=== PATIENT | female | born 1980 | race Caucasian/White ===

== ENCOUNTER 2020-07-04 11:29 | Emergency (ER) | payer OTHER, SELFPAY ==
[2020-07-04 11:37] VITALS: BP 143/98; PULSE 96; RESP 20; TEMP 36.4; O2SAT 98
--- NOTE | 2020-07-04 11:40 | ED.GENADULT ---
HPI - General Adult General Chief complaint: Upper Respiratory Infection Stated complaint: SORE THROAT Time Seen by Provider: 07/04/20 11:41 Source: patient and RN notes reviewed Mode of arrival: ambulatory Limitations: no limitations History of Present Illness HPI narrative: 39-year-old female presents with complaints of sore throat for 1 day. Latesha says she awaken this morning with sore throat and ball hangling from the back of her throat. No treatment. No high fevers, drooling, neck or throat swelling. Pain is bilateral. Hurts to swallow. Exacerbation factors consist of eating and drinking. No rhinorrhea or nasal congestion. No voice change. No nausea, vomiting, or abdominal pain. Tolerating liquids well. Denies chills, dyspnea, difficulty swallowing, jaw pain, dental pain, facial pain, foreign body sensation, and rash. LMP unknown due to IUD in place per Latesha. Remains active. The patient reports she have not been diagnosed with COVID-19. The patient reports she is not waiting for the results of a COVID-19 lab test. The patient reports she do not have fever, chills, weakness, or fatigue. The patient reports she do not have a new or worsening cough or shortness of breath. Denies chest pain. The patient reports she do not have any loss of taste, nausea, or diarrhea. Denies recent traveling. Denies concerns for COVID-19 or exposures been home with limited outdoor exposure except for essential household needs, work, and return home. At this time, patient is not suspected of having COVID-19. Some parts of this dictation were generated by voice recognition software and may contain typographical and/or grammatical inaccuracies. Related Data Home Medications Medication Instructions Recorded Confirmed albuterol sulfate 1 inh INHALATION QID PRN 07/04/20 07/04/20 aspirin 81 mg PO DAILY 07/04/20 07/04/20 atorvastatin 40 mg PO DAILY 07/04/20 07/04/20 clonazepam 0.5 mg PO DAILY PRN 07/04/20 07/04/20 fluoxetine 20 mg PO DAILY 07/04/20 07/04/20 metoprolol tartrate 25 mg PO BID 07/04/20 07/04/20 omeprazole 20 mg PO DAILY 07/04/20 07/04/20 triamterene-hydrochlorothiazid 1 tablet PO DAILY 07/04/20 07/04/20 zolpidem 10 mg PO HS PRN 07/04/20 07/04/20 Allergies Allergy/AdvReac Type Severity Reaction Status Date / Time No Known Allergies Allergy Verified 07/04/20 11:51 Review of Systems Review of Systems: Narrative: CONSTITUTIONAL: Denies fever, chills, sweats. EYES: Denies visual changes, redness, discharge. ENT: Denies rhinorrhea, otalgia, congestion. Complains of sore throat. CARDIOVASCULAR: Denies chest pain, palpitations, edema. RESPIRATORY: Denies dyspnea, wheezing, cough. GASTROINTESTINAL: Denies abdominal pain, nausea, vomiting, diarrhea. GENITOURINARY: Denies dysuria, hematuria, abnormal discharge. SKIN: Denies rash or itching. MUSCULOSKELETAL: Denies acute back pain, joint pain, or myalgia. NEUROLOGIC: Denies numbness or focal weakness. PSYCHIATRIC: Denies anxiety or depression. All systems reviewed & are unremarkable except as noted in HPI and below. [facility] Past Medical History Medical History (Updated 07/04/20 @ 12:21 by ARMINDA Espino) Anxiety Asthma delivery delivered Depression Ganglion cyst History of gastroesophageal reflux (GERD) Hypercholesteremia Hypertension Morbid obesity Latesha says she is preparing to get gastric bypass Myocardial infarct, old Surgical History Surgical History (Updated 07/04/20 @ 12:21 by ARMINDA Espino) H/O section X2 History of coronary artery stent placement History of surgery on left wrist Cyst removed from left wrist History of tonsillectomy S/P LEEP (loop electrosurgical excision procedure) Family History Family History (Updated 07/04/20 @ 12:22 by ARMINDA Espino) Father Unknown family medical history Mother Asthma Hypertension Heart disease Diabetes mellitus Social Histo
== END 2020-07-04 12:24 | disposition home or self-care (01) ==
PROVIDERS: Emergency Provider Nurse Practitioner Family; PCP Family Medicine
DX: J02.9 Acute pharyngitis, unspecified (principal); Z20.828 Contact with and (suspected) exposure to other viral communicable diseases; F17.210 Nicotine dependence, cigarettes, uncomplicated; Z95.5 Presence of coronary angioplasty implant and graft; I25.10 Atherosclerotic heart disease of native coronary artery without angina pectoris; J45.909 Unspecified asthma, uncomplicated; K21.9 Gastro-esophageal reflux disease without esophagitis; E78.00 Pure hypercholesterolemia, unspecified; I10 Essential (primary) hypertension; I25.2 Old myocardial infarction; E66.01 Morbid (severe) obesity due to excess calories; Z68.42 Body mass index [BMI] 45.0-49.9, adult; F41.9 Anxiety disorder, unspecified; F32.9 Major depressive disorder, single episode, unspecified
CPT/HCPCS: 87081; 87804; 87880; 99213; G0463

== ENCOUNTER 2020-07-05 06:59 | Outpatient (NON) | payer OTHER, SELFPAY ==
[2020-07-05 18:17] LABS: SARS-CoV-2 RNA PCR Negative
== END 2020-07-05 07:00 ==
PROVIDERS: PCP Family Medicine; Visit Provider Nurse Practitioner Family
DX: Z20.828 Contact with and (suspected) exposure to other viral communicable diseases (principal); J02.9 Acute pharyngitis, unspecified
CPT/HCPCS: 87635; C9803; U0003

== ENCOUNTER 2020-07-07 16:33 | Outpatient (CLI) | payer OTHER, SELFPAY ==
--- NOTE | ~2020-07-07 | MM_ITS ---
EXAMINATION: MM screening zaida BI w ruby HISTORY: Screening TECHNIQUE: Craniocaudal and mediolateral oblique 3-D tomosynthesis images were obtained and synthetic 2-D images were generated. CAD analysis was submitted and interpreted. COMPARISON: No prior mammogram is available for comparison at this institution. BREAST PARENCHYMAL COMPOSITION: There are scattered areas of fibroglandular density. FINDINGS: There is no evidence of suspicious mass, calcification, or architectural distortion to sugg est malignancy in either breast. There has been no suspicious interval change. IMPRESSION: 1. No mammographic evidence of malignancy. 2. Recommend routine screening mammography in one year. BI-RADS Category 1: Negative Reviewed, dictated and finalized at location A.
== END 2020-07-07 16:34 | disposition home or self-care (01) ==
LOC: ANHIMG 16:35
PROVIDERS: PCP Family Medicine; Visit Provider Family Medicine
DX: Z12.31 Encounter for screening mammogram for malignant neoplasm of breast (principal)
CPT/HCPCS: 77063; 77067

== ENCOUNTER 2020-12-14 17:52 | Emergency (ER) | payer OTHER, SELFPAY ==
[2020-12-14 17:59] VITALS: BP 153/90; PULSE 91; RESP 20; TEMP 36.7; O2SAT 100
--- NOTE | 2020-12-14 18:03 | ED.URI ---
HPI - URI/Sore Throat General Chief Complaint: Upper Respiratory Infection Stated Complaint: DRY THROAT/WHITE SPOTS Time Seen by Provider: 12/14/20 18:04 Source: patient and RN notes reviewed Mode of arrival: ambulatory Limitations: no limitations History of Present Illness HPI Narrative: 40 year old female who presents to [facility] care with complaints of sore throat for 1 day duration. She has noted white bumps to the back of her throat. She states concern since she is getting ready to leave country on vacation. She denies any ear pain, sinus congestion or drainage, or any acute cough or shortness of breath. Patient states that she has had had her tonsils removed but has had strep since their removal. Patient has history of tobacco abuse, and asthma.She denies any known fevers, chills or sweats. MD elicited complaint: sore throat Pertinent past history: asthma and other (tobacco abuse) Onset (ago): day(s) (1) Consistency: constant Severity: moderate Pain scale (0-10): 4 Able to tolerate fluids by mouth: Yes Exacerbating factors: swallowing Relieving factors: nothing Associated symptoms: denies other symptoms Treatments prior to arrival: none Related Data Home Medications Medication Instructions Recorded Confirmed albuterol sulfate 1 inh INHALATION QID PRN 07/04/20 07/04/20 aspirin 81 mg PO DAILY 07/04/20 07/04/20 atorvastatin 40 mg PO DAILY 07/04/20 07/04/20 clonazepam 0.5 mg PO DAILY PRN 07/04/20 07/04/20 fluoxetine 20 mg PO DAILY 07/04/20 07/04/20 metoprolol tartrate 25 mg PO BID 07/04/20 07/04/20 omeprazole 20 mg PO DAILY 07/04/20 07/04/20 triamterene-hydrochlorothiazid 1 tablet PO DAILY 07/04/20 07/04/20 zolpidem 10 mg PO HS PRN 07/04/20 07/04/20 Allergies Allergy/AdvReac Type Severity Reaction Status Date / Time No Known Allergies Allergy Verified 07/04/20 11:51 Review of Systems Review of Systems: Narrative: CONSTITUTIONAL: Denies fever, chills, or sweats. EYES: Denies visual changes, redness, or discharge. ENT: Denies rhinorrhea, congestion, positive for sore throat, no otalgia. CARDIOVASCULAR: Denies chest pain, palpitations, or edema. RESPIRATORY: Denies cough or dyspnea. GASTROINTESTINAL: Denies abdominal pain, nausea, vomiting, or diarrhea. GENITOURINARY: Denies dysuria or hematuria. SKIN: Denies rash or itching. MUSCULOSKELETAL: Denies back pain, joint pain, or myalgia. NEUROLOGIC: Denies headache, numbness, or weakness. PSYCHIATRIC:Positive history of anxiety and depression. All systems reviewed & are unremarkable except as noted in HPI and below PMFSH Past Medical History Medical History Anxiety Asthma delivery delivered Depression Ganglion cyst History of gastroesophageal reflux (GERD) Hypercholesteremia Hypertension Morbid obesity Latesha says she is preparing to get gastric bypass Myocardial infarct, old Surgical History Surgical History H/O section X2 History of coronary artery stent placement History of surgery on left wrist Cyst removed from left wrist History of tonsillectomy S/P LEEP (loop electrosurgical excision procedure) Family History Family History Father Unknown family medical history Mother Asthma Hypertension Heart disease Diabetes mellitus Social History Social History Smoking packs per day: 0.45 Smoking cigarettes per day: 9.0 Years smoked: 25 Smoking pack-years: 11.25 Smoking status: Current every day smoker Tobacco type: cigarettes Alcohol intake: current Substance use: current Substance use type: marijuana Gender identity (if verbalized by the patient): Female Comments At time of signature, agree with nursing past medical, surgical, social and family history. There is no relevant fami
== END 2020-12-14 18:20 | disposition home or self-care (01) ==
PROVIDERS: Emergency Provider Registered Nurse; PCP Family Medicine
DX: J02.9 Acute pharyngitis, unspecified (principal); F17.210 Nicotine dependence, cigarettes, uncomplicated; F41.9 Anxiety disorder, unspecified; J45.909 Unspecified asthma, uncomplicated; F32.9 Major depressive disorder, single episode, unspecified; K21.9 Gastro-esophageal reflux disease without esophagitis; E78.00 Pure hypercholesterolemia, unspecified; I10 Essential (primary) hypertension; E66.01 Morbid (severe) obesity due to excess calories; Z68.43 Body mass index [BMI] 50.0-59.9, adult; I34.1 Nonrheumatic mitral (valve) prolapse; I25.10 Atherosclerotic heart disease of native coronary artery without angina pectoris; Z95.5 Presence of coronary angioplasty implant and graft
CPT/HCPCS: 87081; 87880; 99213; G0463

== ENCOUNTER 2021-04-02 12:16 | Emergency (ER) | payer OTHER, SELFPAY ==
--- NOTE | 2021-04-02 12:18 | ED.EYEPROB ---
HPI - Eye Problem General Chief complaint: Eye Problems Stated complaint: L EYELID SWELLING Time Seen by Provider: 04/02/21 12:19 Source: patient and RN notes reviewed History of Present Illness HPI Narrative: Patient is a 40-year-old female who presents the urgent care with complaints of left eyelid swelling. Patient currently denies of any pain in the eye. Denies any known trauma or injury. Denies any fevers, chills, nausea, vomiting. Patient states that it started yesterday after feeling like something was scratching her in the corner of her eye for couple days . Patient has not taken anything [id number] for her symptoms. No other acute complaints. No acute distress noted. Patient aware of the plan of care. Some parts of this dictation were generated by voice recognition software and may contain typographical and/or grammatical inaccuracies. Related Data Home Medications Medication Instructions Recorded Confirmed albuterol sulfate 1 inh INHALATION QID PRN 07/04/20 07/04/20 aspirin 81 mg PO DAILY 07/04/20 07/04/20 atorvastatin 40 mg PO DAILY 07/04/20 07/04/20 clonazepam 0.5 mg PO DAILY PRN 07/04/20 07/04/20 fluoxetine 20 mg PO DAILY 07/04/20 07/04/20 metoprolol tartrate 25 mg PO BID 07/04/20 07/04/20 omeprazole 20 mg PO DAILY 07/04/20 07/04/20 triamterene-hydrochlorothiazid 1 tablet PO DAILY 07/04/20 07/04/20 zolpidem 10 mg PO HS PRN 07/04/20 07/04/20 Allergies Allergy/AdvReac Type Severity Reaction Status Date / Time No Known Allergies Allergy Verified 07/04/20 11:51 Review of Systems Review of Systems: Narrative: CONSTITUTIONAL: Denies fever, chills, or sweats. EYES: Reports of left upper eyelid swelling, redness and drainage without vision change ENT: Denies rhinorrhea, congestion, sore throat, or otalgia. CARDIOVASCULAR: Denies chest pain, palpitations, or edema. RESPIRATORY: Denies cough or dyspnea. GASTROINTESTINAL: Denies abdominal pain, nausea, vomiting, or diarrhea. GENITOURINARY: Denies dysuria or hematuria. SKIN: Denies rash or itching. MUSCULOSKELETAL: Denies back pain, joint pain, or myalgia. NEUROLOGIC: Denies headache, numbness, or weakness. All other systems reviewed are negative, except as documented in HPI. [facility] Past Medical History Medical History Anxiety Asthma delivery delivered Depression Ganglion cyst History of gastroesophageal reflux (GERD) Hypercholesteremia Hypertension Morbid obesity Latesha says she is preparing to get gastric bypass Myocardial infarct, old Surgical History Surgical History H/O section X2 History of coronary artery stent placement History of surgery on left wrist Cyst removed from left wrist History of tonsillectomy S/P LEEP (loop electrosurgical excision procedure) Family History Family History Father Unknown family medical history Mother Asthma Hypertension Heart disease Diabetes mellitus Social History Social History Smoking packs per day: 0.45 Smoking cigarettes per day: 9.0 Years smoked: 25 Smoking pack-years: 11.25 Smoking status: Current every day smoker Tobacco type: cigarettes Alcohol intake: current Substance use: current Substance use type: marijuana Gender identity (if verbalized by the patient): Female Comments At the time of my signature, I reviewed and agree with the nursing past medical, surgical, social, and family history. There is no relevant family history pertinent to the patient complaint. Exam Narrative: Exam Narrative: GENERAL: This is a well-nourished, well-developed patient, in no apparent distress. HEAD: normocephalic, atraumatic. EYES: PERRL. Sclera clear/white. Vision is grossly intact. Left upper eyelid periorbital cellulitis
[2021-04-02 12:23] VITALS: BP 153/112; PULSE 84; RESP 16; TEMP 36.4; O2SAT 99
== END 2021-04-02 12:36 | disposition home or self-care (01) ==
PROVIDERS: Emergency Provider Nurse Practitioner Family; PCP Family Medicine
DX: L03.213 Periorbital cellulitis (principal); F17.210 Nicotine dependence, cigarettes, uncomplicated; J45.909 Unspecified asthma, uncomplicated; K21.9 Gastro-esophageal reflux disease without esophagitis; E78.00 Pure hypercholesterolemia, unspecified; I10 Essential (primary) hypertension; E66.01 Morbid (severe) obesity due to excess calories; Z68.43 Body mass index [BMI] 50.0-59.9, adult; I25.2 Old myocardial infarction; Z95.5 Presence of coronary angioplasty implant and graft
CPT/HCPCS: 99213; G0463

== ENCOUNTER 2021-08-30 11:05 | Outpatient (RCR) | payer OTHER, SELFPAY ==
[2021-08-30 11:15] VITALS: BMI 50.5
== END 2021-10-04 09:27 | disposition home or self-care (01) ==
LOC: ANHDMC 11:05
PROVIDERS: PCP Family Medicine; Visit Provider Family Medicine
DX: E66.01 Morbid (severe) obesity due to excess calories (principal)
CPT/HCPCS: 99199

== ENCOUNTER 2022-02-15 18:29 | Observation (INO) | payer OTHER, SELFPAY ==
[2022-02-15] VITALS (11 sets, daily range): BP systolic 129–160; BP diastolic 77–115; PULSE 78–99; RESP 15–24; TEMP 36.4–36.6; O2SAT 92–100; BMI 53.1
--- NOTE | ~2022-02-15 | NM_ITS ---
EXAMINATION: NM lois stress w perfusion DATE: 02/16/2022 12:28 INDICATION: Abnormal electrocardiogram. Syncope. TECHNIQUE: Rest images were obtained following intravenous administration of 9.2 mCi Tc99m tetrofosmi n (Myoview). The patient was infused intravenously with Lexiscan (regadenoson). Then, 30.7 mCi Tc99m tetrofosmin (Myoview) was administered intravenously, and stress images were obtained. Data was recon structed into short axis and horizontal and vertical long axis SPECT images. Gated SPECT images were also obtained. COMPARISON: None. FINDINGS: There is no definite reversible or fixed perfusion abnormality to suggest ischemia or infar ction. There is no segmental wall motion abnormality. Left ventricular ejection fraction measures 6 9%. IMPRESSION: 1. No definite ischemia or infarct. 2. Normal left ventricular ejection fraction measuring 69%. Reviewed, dictated and finalized at location A.
--- NOTE | ~2022-02-15 | CT_ITS ---
EXAMINATION: CT brain wo con DATE: 02/15/2022 20:19 INDICATION: Paresthesia . TECHNIQUE: Computed tomography (CT) of the head was performed without intravenous contrast. The mA wa s adjusted according to patient size. Iterative reconstruction technique was employed. The dose-lengt h product was 605.33 mGy-cm. COMPARISON: 05/31/2019. FINDINGS: No acute intracranial hemorrhage or extra-axial fluid collection. No hydrocephalus, mass, or herniation. No acute ischemic infarct. Unremarkable dural venous sinus attenuation. No acute osseous abnormality. The aerated spaces are clear. IMPRESSION: No acute intracranial process. Reviewed, dictated and finalized at location K.
--- NOTE | ~2022-02-15 | XR_ITS ---
EXAMINATION: XR chest 2V Exam Date/Time: 02/15/2022 21:05 CDT HISTORY: TINGLING FINGER TIPS,LT ARM NUMB,X 1.5 WKS,HX HTN,ASTHMA Comparison: None available. RESULT: Lines, tubes, and devices: None. Lungs and pleura: Clear. Cardiomediastinal silhouette: Stable cardiomediastinal silhouette. Other: No acute osseous or upper abdominal finding. IMPRESSION: No acute cardiopulmonary process. Reviewed, dictated and finalized at location K.
--- NOTE | ~2022-02-15 | US_ITS ---
EXAMINATION: US carotid duplex BI DATE: 02/16/2022 11:00 INDICATION: Syncope. Paresthesias. Cerebral atherosclerosis. TECHNIQUE: Grayscale, color Doppler, and pulsed Doppler images of the cervical carotid arteries were obtained. The degree of vessel stenosis is placed in one of the following categories: normal, <50%, 5 0-69%, >=70% but less than near-occlusion, near-occlusion, or total occlusion. Note that percent sten osis relative to normal distal artery lumen diameter is indirectly measured from velocity measurement s as described by Jovany, et al. Radiology 2003; 229:340-346. COMPARISON: None. FINDINGS: RIGHT: The right common carotid artery (CCA) peak systolic velocity (PSV) is 71 cm/s. The right internal car otid artery (ICA) PSV is 60 cm/s. The right ICA end-diastolic velocity (EDV) is 26 cm/s. The right IC A/CCA PSV ratio is 0.9. Grayscale and color Doppler images yield an estimate of <50% diameter reducti on from plaque in the ICA. The external carotid artery (ECA) PSV is 69 cm/s. There is antegrade flow in the right vertebral artery. LEFT: The left CCA PSV is 78 cm/s. The left ICA PSV is 75 cm/s. The left ICA EDV is 43 cm/s. The left ICA/C CA PSV ratio is 1.0. Grayscale and color Doppler images yield an estimate of <50% diameter reduction from plaque in the ICA. The ECA PSV is 56 cm/s. There is antegrade flow in the left vertebral artery. IMPRESSION: 1. <50% stenosis in the right internal carotid artery. 2. <50% stenosis in the left internal carotid artery. Reviewed, dictated and finalized at location B.
--- NOTE | 2022-02-15 20:04 | ECG_ITS ---
Measurements Intervals [place] Rate: 76 P: 56 NC: 152 QRS: 57 QRSD: 100 T: 57 QT: 389 QTc: 439 Interpretive Statements SINUS RHYTHM MINIMAL Q WAVES- INFERIOR LEADS BORDERLINE ECG Electronically Signed On 02-16-2022 6:32:48 CDT by Ant Gonzalez D.O.
--- NOTE | 2022-02-15 20:09 | ED.GENADULT ---
HPI - General Adult General Chief complaint: Unspecified Stated complaint: finger tips numb/tingling Time Seen by Provider: 02/15/22 19:52 History of Present Illness HPI narrative: Patient is a 41-year-old female complaining of tingling of her fingertips, both hands, left upper extremity numbness, started 1.5 weeks ago. Patient states that she had a syncopal episode 1 week ago at work. Denies any speech or visual disturbance, focal weakness or numbness, unsteady gait, dizziness, headache, chest pain, or shortness of breath. Patient also complaining of substernal chest pain, heartburn , 5 out of 10, radiating to left upper extremity, intermittent for the past month but worse the past week. Related Data Home Medications Medication Instructions Recorded Confirmed albuterol sulfate 90 mcg/actuation 1 inh inhalation QID PRN Wheezing 07/04/20 07/04/20 aerosol inhaler aspirin 81 mg tablet 81 mg PO DAILY 07/04/20 07/04/20 atorvastatin 40 mg tablet 40 mg PO DAILY 07/04/20 07/04/20 clonazepam 0.5 mg tablet 0.5 mg PO DAILY PRN Anxiety 07/04/20 07/04/20 fluoxetine 20 mg capsule 20 mg PO DAILY 07/04/20 07/04/20 metoprolol tartrate 25 mg tablet 25 mg PO BID 07/04/20 07/04/20 omeprazole 20 mg capsule,delayed 20 mg PO DAILY 07/04/20 07/04/20 release triamterene 75 1 tablet PO DAILY 07/04/20 07/04/20 mg-hydrochlorothiazide 50 mg tablet zolpidem 10 mg tablet 10 mg PO HS PRN Wheezing 07/04/20 07/04/20 Allergies Allergy/AdvReac Type Severity Reaction Status Date / Time No Known Allergies Allergy Verified 07/04/20 11:51 Review of Systems Review of Systems: All systems reviewed & are unremarkable except as noted in HPI and below Constitutional: Constitutional: Denies body ache(s), Denies chills, Denies excessive sweating, Denies fatigue, Denies fever(s), Denies headache(s), Denies lethargy, Denies malaise, Denies weakness and Denies weight loss Eyes: Eyes: Denies blurry vision, Denies change in vision and Denies loss of vision ENT: Denies dizziness, Denies ear discharge, Denies headache(s), Denies lip swelling, Denies epistaxis, Denies nasal congestion, Denies neck pain, Denies throat swelling and Denies tongue swelling Cardiovascular: Cardiovascular: Denies chest pain, Denies chest pain at rest, Denies chest pain with activity, Denies diaphoresis, Denies rapid heart rate, Denies edema, Denies irregular heart rhythm, Denies lightheadedness, Denies palpitations, Denies dyspnea and Denies dyspnea on exertion Respiratory: Respiratory: Denies chest congestion, Denies cough, Denies hemoptysis, Denies dyspnea and Denies dyspnea on exertion Gastrointestinal: Gastrointestinal: Denies abdominal pain, Denies melena, Denies hematochezia, Denies diarrhea, Denies nausea, Denies vomiting and Denies hematemesis Musculoskeletal: Musculoskeletal: Denies abnormal gait, Denies deformity, Denies joint swelling, Denies limited range of motion, Denies neck pain and Denies numbness Neurologic: Denies Abnormal speech present, Denies abnormal gait, Denies confusion, Denies dizziness, Denies headache(s), Denies focal weakness, Denies loss of vision, Denies numbness, Denies Other visual disturbances and Denies weakness Psychiatric: Psychiatric: Denies confusion, Denies depression, Denies auditory hallucinations, Denies homicidal ideation and Denies suicidal ideation Endocrine: Endocrine: Denies cold intolerance, Denies excessive sweating, Denies fatigue, Denies heat intolerance and Denies palpitations Hematologic/Lymphatic: Hematologic/Lymphatic: Denies easy bleeding and Denies easy bruising Allergic/Immunologic: Allergic/Immunologic: Denies lip swelling, Denies throat swelling and Denies tongue swelling PMFSH Past Medical History Medical History Anxiety Asthma delivery delivered Depression Ganglion cyst History of gastroesophageal reflux (GERD) Hypercholesteremia Hypertension Morbid obesity M
[2022-02-15 20:36] LABS: Basophils Absolute Auto 0.1 K/mm3 (0.0-0.1); Basophils Percent Auto 1.3 % (0.2-1.2); Eosinophils Absolute Auto 0.2 K/mm3 (0-0.3); Hematocrit 41.6 % (37.0-47.0); Hemoglobin 14.3 g/dL (12.0-15.0); Immature Granulocyte Absolute 0.04 K/mm3 (0.00-0.031); Immature Granulocyte Percent A 0.5 % (0-0.5); Lymphocytes Absolute Auto 2.64 K/mm3 (0.9-3.2); Lymphocytes Percent Auto 30.8 % (18.3-44.2); Mean Corpuscular HGB Conc 34.4 g/dl (32-36); Mean Platelet Volume 11.2 fl (7.4-10.4); Monocytes Absolute Auto 0.5 K/mm3 (0.1-0.6); Monocytes Percent Auto 6.3 % (2.6-8.5); Neutrophils Absolute Auto 5.1 K/mm3 (1.3-6.7); Neutrophils Percent Auto 59.1 % (45.5-73.1); Platelet Count Result 207 k/mm3 (150-375); Red Blood Count 4.62 M/mm3 (4.2-5.4); Red Cell Distribution Width 12.6 % (11.5-14.5); White Blood Count 8.6 K/mm3 (4.5-10.0)
[2022-02-15 20:45] LABS: Anion Gap 10 mmol/L (8-16); Blood Urea Nitrogen 7 mg/dL (7-17); Calcium 9.3 mg/dL (8.4-10.2); Carbon Dioxide 27 mmol/L (22-30); Chloride 100 mmol/L (98-107); Estimated CRCL calculation 146 ml/min; Estimated Glomerular Filt Rate > 60; Glucose 114 mg/dL (65-110); Potassium 3.9 mmol/L (3.4-5.0); Sodium 137 mmol/L (137-145)
[2022-02-15 20:57] LABS: Troponin I < 0.012 ng/mL (0.000-0.034)
[2022-02-15] MEDS: ASPIRIN 81 MG CHEWABLE TABLET 324 MG PO (21:23)
--- NOTE | 2022-02-15 23:23 | PC.NURSE ---
Report called to Annette SIMMS.
--- NOTE | 2022-02-15 23:34 | ED.GENADULT ---
HPI - General Adult General Chief complaint: Unspecified Stated complaint: finger tips numb/tingling Time Seen by Provider: 02/15/22 19:52 Related Data Home Medications Medication Instructions Recorded Confirmed albuterol sulfate 90 mcg/actuation 1 inh inhalation QID PRN Wheezing 07/04/20 07/04/20 aerosol inhaler aspirin 81 mg tablet 81 mg PO DAILY 07/04/20 07/04/20 atorvastatin 40 mg tablet 40 mg PO DAILY 07/04/20 07/04/20 clonazepam 0.5 mg tablet 0.5 mg PO DAILY PRN Anxiety 07/04/20 07/04/20 fluoxetine 20 mg capsule 20 mg PO DAILY 07/04/20 07/04/20 metoprolol tartrate 25 mg tablet 25 mg PO BID 07/04/20 07/04/20 omeprazole 20 mg capsule,delayed 20 mg PO DAILY 07/04/20 07/04/20 release triamterene 75 1 tablet PO DAILY 07/04/20 07/04/20 mg-hydrochlorothiazide 50 mg tablet zolpidem 10 mg tablet 10 mg PO HS PRN Wheezing 07/04/20 07/04/20 Allergies Allergy/AdvReac Type Severity Reaction Status Date / Time No Known Allergies Allergy Verified 07/04/20 11:51 [facility] Past Medical History Medical History Anxiety Asthma delivery delivered Depression Ganglion cyst History of gastroesophageal reflux (GERD) Hypercholesteremia Hypertension Morbid obesity Latesha says she is preparing to get gastric bypass Myocardial infarct, old Surgical History Surgical History H/O section X2 History of coronary artery stent placement History of surgery on left wrist Cyst removed from left wrist History of tonsillectomy S/P LEEP (loop electrosurgical excision procedure) Family History Family History Father Unknown family medical history Mother Asthma Hypertension Heart disease Diabetes mellitus Social History Social History Smoking packs per day: 0.45 Smoking cigarettes per day: 9.0 Years smoked: 25 Smoking pack-years: 11.25 Smoking status: Current every day smoker Tobacco type: cigarettes Alcohol intake: current Substance use: current Substance use type: marijuana Gender identity (if verbalized by the patient): Female Sexual Orientation (if Verbalized by the Patient): Straight or Heterosexual Course Vital Signs Vital signs: Vital Signs Temperature 98 F 02/15/22 18:40 Pulse Rate 99 02/15/22 18:40 Respiratory Rate 18 02/15/22 18:40 Blood Pressure 148/99 H 02/15/22 18:40 Pulse Oximetry 99 02/15/22 18:40 Oxygen Delivery Room Air 02/15/22 18:40 Temperature 98 F 02/15/22 18:40 Pulse Rate 78 02/15/22 23:16 Respiratory Rate 15 02/15/22 23:16 Blood Pressure 151/93 H 02/15/22 23:16 Pulse Oximetry 96 02/15/22 23:16 Oxygen Delivery Room Air 02/15/22 19:57 Medical Decision Making Vital Signs Vital Signs: Vital Signs Temperature 98 F 02/15/22 18:40 Pulse Rate 99 02/15/22 18:40 Respiratory Rate 18 02/15/22 18:40 Blood Pressure 148/99 H 02/15/22 18:40 Pulse Oximetry 99 02/15/22 18:40 Oxygen Delivery Room Air 02/15/22 18:40 Temperature 98 F 02/15/22 18:40 Pulse Rate 78 02/15/22 23:16 Respiratory Rate 15 02/15/22 23:16 Blood Pressure 151/93 H 02/15/22 23:16 Pulse Oximetry 96 02/15/22 23:16 Oxygen Delivery Room Air 02/15/22 19:57 Lab Data Result diagrams: 02/15/22 20:30 02/15/22 20:31 Labs: Lab Results 02/15/22 02/15/22 02/15/22 Range/Units 20:30 20:31 20:31 WBC 8.6 (4.5-10.0) K/mm3 RBC 4.62 (4.2-5.4) M/mm3 Hgb 14.3 (12.0-15.0) g/dL Hct 41.6 (37.0-47.0) % MCV 90.0 (80-100) fl MCH 31.0 (26-34) pg MCHC 34.4 (32-36) g/dl RDW 12.6 (11.5-14.5) % Plt Count 207 (150-375) k/mm3 MPV 11.2 H (7.4-10.4) fl Immature Gran % (Auto) 0.5 (0-0.5) % Neut % (Auto) 59.1 (
[2022-02-16] VITALS (14 sets, daily range): BP systolic 114–150; BP diastolic 72–115; PULSE 67–92; RESP 18–22; TEMP 35.8–36.7; O2SAT 92–99
--- NOTE | 2022-02-16 | ECHO_ITS ---
Patient Info Name: Latesha Aevndaño Age: 41 years : 1980 Gender: Female Ht: 64 in Wt: 309 lbs BSA: 2.61 m2 HR: 65 bpm BP: 114 / 72 mmHg Heart Rhythm: Sinus Rhythm Technical Quality: Poor Exam Date: 02/16/2022 2:38 PM Exam Location: [facility] Card Pulmonary Patient Status: Inpatient Admit Date: 02/15/2022 Staff Ordering Physician: Keila Bonds MD Rn Faculty: Sia Mcneal RDCS Attending Provider: Tamie Kauffman PA-C Referring Physician: Cammie TYLER; Exam Type: CA echo dop color flow w con Study Info Indications R55 - Syncope and collapse Complete two-dimensional, color flow and Doppler transthoracic echocardiogram is performed with contrast to opacify the left ventricle and to improve the deliniation of the left ventricle endocardial borders. Contrast/Agitated Saline Contrast/Ag. Saline: Definity Amount: 2.00 ml Administered By: Sia Mcneal RDCS Existing IV Access: Yes IV Access Condition: patent with no signs of infiltration Reason for Poor Study: patient body habitus Summary 1. Left ventricular chamber dimension is normal. 2. Left ventricular systolic function is hyperdynamic, estimated at >70%. 3. Left atrial chamber dimension is mildly enlarged. 4. No valvular abnormalities found. Left Ventricle Left ventricular chamber dimension is normal. Left ventricular systolic function is hyperdynamic, estimated at >70%. The left ventricular diastolic function is normal. Right Ventricle Right ventricular chamber dimension is normal. Left Atria Left atrial chamber dimension is mildly enlarged. Right Atria Right atrial chamber dimension is normal. Aortic Valve The aortic valve is normal. Pulmonic Valve The pulmonic valve is not well visualized. Mitral Valve The mitral valve has normal leaflets. Tricuspid Valve The tricuspid valve leaflets are not well visualized. Pericardium/Pleural The pericardium appears normal. Aorta The aortic root size at the sinus of Valsalva is normal. Left Ventricular Outflow Tract Name Value Normal LVOT 2D LVOT Diameter 1.92 cm LVOT Doppler LVOT Peak Gradient 4 mmHg LVOT Mean Gradient 3 mmHg LVOT VTI 21.50 cm LVOT VTI/AV VTI Ratio 0.79 LVOT Stroke Volume 61.93 ml LVOT CO 4.46 l/min LVOT CI 1.71 L/min/m2 Pulmonic Valve Name Value Normal RVOT Doppler RVOT Peak Gradient 2 mmHg PV Doppler PV Peak Gradient 2 mmHg Mitral Valve Nam
[2022-02-16 00:31] LABS: Troponin I < 0.012 ng/mL (0.000-0.034)
--- NOTE | 2022-02-16 01:15 | PCRCNOTE ---
Pt states that she is supposed to wear CPAP at home but that she does not use one at home and will not use one here. At this time, no order has been received for her to have one here. No CPAP machine is in the room.
--- NOTE | 2022-02-16 03:04 | ADMGEN ---
This patient, Latesha Avendaño, was admitted to IMU Room 214-01 at 2346. Patient/family oriented to hospital policies and general routines including ID bracelet, bed and alarms, visiting hours, pain management, procedures, bathroom and other care routines, personal items, smoking policy, room service/diet, and visiting hours. Information on how to activate the Rapid Response Team has been discussed. Patient/Family are encouraged to report perceived risks to care and to ask questions if they do not understand what they are told or what they should do.
[2022-02-16 03:16] LABS: Troponin I < 0.012 ng/mL (0.000-0.034)
--- NOTE | 2022-02-16 05:39 | PM.IMHP ---
H&P: HPI History of Present Illness Date/Time: 02/16/22 05:39 Chief Complaint: Chest pain Narrative: This is a 41-year-old female with past medical history significant for obesity, tobacco dependence, dyslipidemia, generalized anxiety, hypertension, gastroesophageal reflux disease, morbid obesity. 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 Patient denies any calves, she has a chronic cough, no change in sputum quality, patient had near syncopal episode as well, no diaphoresis, no palpitations, no PND, no orthopnea. Preliminary workup was significant for vitals in emergency room with systolic in the 100 and 50s diastolic in the 90s to 100s range, an EKG did not show any acute changes, a CT head did not show any acute intracranial abnormalities, a chest x-ray was clear, rest of workup was low yielding. Patient is being admitted for further evaluation, management and treatment. Review of Systems Review of Systems: Numbness and tingling sensation on bilateral upper extremities hands fingers chest discomfort Constitutional: Constitutional: Denies chills, Denies excessive sweating, Denies fever(s) and Denies malaise Eyes: Eyes: Denies change in vision ENT: Denies dysphagia, Denies vertigo, Denies dizziness, Denies nasal congestion, Denies nasal discharge, Denies nasal obstruction and Denies neck pain Respiratory: Respiratory: Denies change in phlegm color, Denies cough, Denies excessive phlegm production and Denies pain with cough Gastrointestinal: Gastrointestinal: Reports abdominal pain (Epigastric), Reports dyspepsia, Reports heartburn, Denies diarrhea, Denies nausea and Denies vomiting Musculoskeletal: Musculoskeletal: Denies back pain, Denies arthralgias and Denies joint swelling Integumentary/Breasts: Skin/Breast: Denies rash Neurologic: Denies vertigo, Denies dizziness, Denies focal weakness, Reports numbness, Denies Sensory deficit (Neuro), Reports tingling and Reports paresthesias Psychiatric: Psychiatric: Reports no additional psychiatric complaints and Reports as per HPI Endocrine: Endocrine: Denies cold intolerance, Denies fatigue, Denies flushing, Denies heat intolerance, Denies polyphagia, Denies polydipsia and Denies palpitations Hematologic/Lymphatic: Hematologic/Lymphatic: Reports no additional hematologic/lymphatic complaints and Reports as per HPI Allergic/Immunologic: Allergic/Immunologic: Reports no additional allergic/immunologic complaints and Reports as per HPI PMFSH Past Medical History Medical History (Updated 02/16/22 @ 06:08 by Keila Bonds MD) Anxiety Asthma delivery delivered Depression Ganglion cyst History of gastroesophageal reflux (GERD) Hypercholesteremia Hypertension Morbid obesity Latesha says she is preparing to get gastric bypass Myocardial infarct, old Surgical History Surgical History H/O section X2 History of coronary artery stent placement History of surgery on left wrist Cyst removed from left wrist History of tonsillectomy S/P LEEP (loop electrosurgical excision procedure) Family History Family History Father Unknown family medical history Mother Asthma Hypertension Heart disease Diabetes mellitus Social History Social History Smoking packs per day: 0.45 Smoking cigarettes per day: 9.0 Years smoked: 25 Smoking pack-years: 11.25 Smoking status: Current every day smoker Alcohol intake: current Substance use: current Substance use type: marijuana Gender identity (if verbalized by the patient): Female Sexual Orientation (if [place]
--- NOTE | 2022-02-16 06:04 | EST_ITS ---
Patient Info Name: Latesha Avendaño Age: 41 years : 1980 Gender: Female Ht: 64 in Wt: 309 lbs BSA: 2.61 m2 HR: 63 bpm BP: 141 / 80 mmHg Heart Rhythm: Sinus Rhythm Exam Date: 02/16/2022 11:38 AM Exam Location: [facility] Stress Patient Status: Outpatient Admit Date: 02/15/2022 Staff Ordering Physician: Keila Bonds MD Attending Provider: Tamie Kauffman PA-C Exercise Technologist: Janay South CT Nurse: JAMES CABRALES Exam Type: CA stress lois w NM Study Info Indications R55 - Syncope and collapse A regadenoson stress test was performed. Summary 1. No abnormal ST-T wave changes with lexiscan. 2. Please correlate with nuclear medicine images, reported separately. Protocol: Lexiscan Stress ECG Details Stage: REST Duration (min): 2 min : 23 sec HR (bpm): 64 SBP (mmHg): 141 DBP (mmHg): 80 Stage: REST Duration (min): 4 min : 30 sec HR (bpm): 66 SBP (mmHg): 141 DBP (mmHg): 80 Stage: REST Duration (min): 10 min : 4 sec HR (bpm): 69 SBP (mmHg): 141 DBP (mmHg): 80 Stage: STAGE 1 Duration (min): 0 min : 59 sec HR (bpm): 85 SBP (mmHg): 141 DBP (mmHg): 80 Stage: RECOVERY Duration (min): 1 min : 0 sec HR (bpm): 85 SBP (mmHg): 155 DBP (mmHg): 108 Stage: RECOVERY Duration (min): 2 min : 0 sec HR (bpm): 81 SBP (mmHg): 155 DBP (mmHg): 108 Stage: RECOVERY Duration (min): 3 min : 0 sec HR (bpm): 81 SBP (mmHg): 148 DBP (mmHg): 103 Stage: RECOVERY Duration (min): 3 min : 19 sec HR (bpm): 80 SBP (mmHg): 148 DBP (mmHg): 103 Rest HR: 69 bpm Peak HR: 89 bpm Rest Sys BP: 141 mmHg Peak Sys BP: 155 mmHg Max Pred HR: 178 bpm % Max Pred HR: 50 % Target HR: 151 bpm Max RPP: 13,795 bpm*mmHg BP Response: Normal blood pressure response Termination Reason: Completed protocol Cardiac Symptoms: None Total Time: 1 min : 0 sec Rest Pope BP: 80 mmHg Peak Pope BP: 108 mmHg Total Dose: 0.4 mg Resting ECG Normal sinus rhythm. Stress ECG No abnormal ST/T wave changes with exercise. Arrhythmias None. Report Signatures
[2022-02-16] MEDS: FLUoxetine HCL 20 MG CAPSULE PO (09:00)
[2022-02-16] MEDS: LORATADINE 10 MG TABLET PO (09:00)
[2022-02-16] MEDS: ATORVASTATIN 40 MG TABLET PO (09:00)
[2022-02-16] MEDS: TRIAMTERENE 37.5 MG/HCTZ 25 MG (MAXZIDE) TABLET 2 TAB PO (09:00)
[2022-02-16] MEDS: ENOXAPARIN 40 MG/0.4 ML SYRINGE SUB-Q (09:00)
[2022-02-16] MEDS: METOPROLOL TARTRATE 25 MG TABLET PO (09:01)
[2022-02-16] MEDS: PANTOPRAZOLE 40 MG TABLET PO (09:01)
[2022-02-16] MEDS: ASPIRIN 81 MG CHEWABLE TABLET PO (09:01)
--- NOTE | 2022-02-16 12:06 | PCCCNOTE ---
On 02/16/22, the student, [Nina Tapia], provided care and completed [facility] documentation on this patient. I have reviewed the student's documentation and agree with the findings.
[2022-02-16] MEDS: PERFLUTREN LIPID MICROSPHERES 1.5 ML VIAL DILUTED TO 10 ML TOTAL VOLUME IV PUSH (14:59)
--- NOTE | 2022-02-16 14:59 | IVDEFINITY ---
Prior to administration of IV Definity the patient was educated on the risks and benefits of the imaging enhancing agent including potential adverse side effects. The patient verbalized understanding. Allergies were verified. No exclusion criteria were identified and at least one of the following inclusion criteria were met: 1) physician request, 2) patient technically difficult to image (per the [place] [employer]ocardi[employer] guidelines of two or more segments not discernable within the apical view), or 3) questionable left ventricular function. ?
--- NOTE | 2022-02-16 15:33 | P.DS_ITS ---
DS: Admitting Diagnosis Discharge Date 02/16/2022 <Tamie Kauffman TED-C - Last Filed: 02/16/22 15:51> Admitting Diagnosis Syncope <Tamie Kauffman TED-C - Last Filed: 02/16/22 15:51> DS: Discharge Diagnosis Discharge Diagnosis (1) Syncope and collapse: Code(s): R55 - Syncope and collapse <Tamie Kauffman PA-C - Last Filed: 02/16/22 15:51> Status: Acute <Tamie Kauffman PA-C - Last Filed: 02/16/22 15:51> Assessment and Plan: Patient had a syncopal episode at work one week prior to presentation * Head CT on presentation showed no acute findings * Carotid Doppler with <50% stenosis of the bilateral internal carotid arteries * Orthostatics negative * Echocardiogram was pending. Patient will be contacted with results * Encourage adequate p.o. intake and breaks during busy work shifts <Tamie Dupreemacie PA-C - Last Filed: 02/16/22 15:51> (2) Chest pain: Code(s): R07.9 - Chest pain, unspecified <Tamie Kauffman PA-C - Last Filed: 02/16/22 15:51> Status: Acute <Tamie Kauffman PA-C - Last Filed: 02/16/22 15:51> Assessment and Plan: Complained of substernal chest pain ongoing intermittently for 1 month. Resolved following admission * Lexiscan stress test negative * Troponins negative x3 * EKG showed sinus rhythm with no ST abnormalities * Echocardiogram pending as above * Follow-up with cardiology outpatient as previously scheduled <Tamie Dupreemacie TED-C - Last Filed: 02/16/22 15:51> (3) GERD (gastroesophageal reflux disease): Code(s): K21.9 - Gastro-esophageal reflux disease without esophagitis <Barrett Loya Daly PA-C - Last Filed: 02/16/22 15:51> Status: Acute <Tamie Dupreemacie PA-C - Last Filed: 02/16/22 15:51> Assessment and Plan: Continue omeprazole daily <Tamie DominguezTED Hernandes-C - Last Filed: 02/16/22 15:51> (4) Hypertension: Code(s): I10 - Essential (primary) hypertension <Tamie J. Leiaac, PA-C - Last Filed: 02/16/22 15:51> Status: Acute <Tamie J. Stimac, PA-C - Last Filed: 02/16/22 15:51> Assessment and Plan: Pressures reviewed and were slightly elevated above target on presentation, likely related to anxiety surrounding hospitalization. Blood pressures did improve. * Continue metoprolol and triamterene-hydrochlorothiazide * Instructed to monitor blood pressures at home and record for review by PCP <Tamie Alberto. Leiaac, PA-C - Last Filed: 02/16/22 15:51> (5) Asthma: Code(s): J45.909 - Unspecified asthma, uncomplicated <Tamie J. Stimac, PA-C - Last Filed: 02/16/22 15:51> Status: Acute <Tamie J. Stimac, PA-C - Last Filed: 02/16/22 15:51> Assessment and Plan: No acute issues * Continue inhalers <Tamie J. Stimac, PA-C - Last Filed: 02/16/22 15:51> (6) Tobacco dependence: Code(s): F17.200 - Nicotine dependence, unspecified, uncomplicated <Tamie J. Stimac, PA-C - Last Filed: 02/16/22 15:51> Status: Acute <Tamie J. Stimac, PA-C - Last Filed: 02/16/22 15:51> Assessment and Plan: Patient smokes a half a pack per day * She was educated on smoking cessation <Tamie J. Stimac, PA-C - Last Filed: 02/16/22 15:51> (7) Anxiety: Code(s): F41.9 - Anxiety disorder, unspecified <Tamie J. Stimac, PA-C - Last Filed: 02/16/22 15:51> Status: Acute <Tamie J. Stimac, PA-C - Last Filed: 02/16/22 15:51> Assessment and Plan: No acute issues * Continue fluoxetine <Tamie J. Leiaac, PA-C - Last File
--- NOTE | 2022-02-16 15:33 | PM.DS ---
DS: Admitting Diagnosis Discharge Date 02/16/2022 <TED Downey-C - Last Filed: 02/16/22 15:51> Admitting Diagnosis Syncope <TED Downey-C - Last Filed: 02/16/22 15:51> DS: Discharge Diagnosis Discharge Diagnosis (1) Syncope and collapse: Code(s): R55 - Syncope and collapse <Tamie Kauffman TED-C - Last Filed: 02/16/22 15:51> Status: Acute <Tamie Kauffman PA-C - Last Filed: 02/16/22 15:51> Assessment and Plan: Patient had a syncopal episode at work one week prior to presentation Head CT on presentation showed no acute findings Carotid Doppler with <50% stenosis of the bilateral internal carotid arteries Orthostatics negative Echocardiogram was pending. Patient will be contacted with results Encourage adequate p.o. intake and breaks during busy work shifts <Tamie Kauffman TED-C - Last Filed: 02/16/22 15:51> (2) Chest pain: Code(s): R07.9 - Chest pain, unspecified <Tamie Kauffman PA-C - Last Filed: 02/16/22 15:51> Status: Acute <Tamie Kauffman PA-C - Last Filed: 02/16/22 15:51> Assessment and Plan: Complained of substernal chest pain ongoing intermittently for 1 month. Resolved following admission Lexiscan stress test negative Troponins negative x3 EKG showed sinus rhythm with no ST abnormalities Echocardiogram pending as above Follow-up with cardiology outpatient as previously scheduled <Tamie Kauffman TED-C - Last Filed: 02/16/22 15:51> (3) GERD (gastroesophageal reflux disease): Code(s): K21.9 - Gastro-esophageal reflux disease without esophagitis <Tamie Dupreemacie PA-C - Last Filed: 02/16/22 15:51> Status: Acute <Tamie Kauffman PA-C - Last Filed: 02/16/22 15:51> Assessment and Plan: Continue omeprazole daily <Tamie Dupreemacie PA-C - Last Filed: 02/16/22 15:51> (4) Hypertension: Code(s): I10 - Essential (primary) hypertension <Tamie AlbertoKerwin Leiamacie, PA-C - Last Filed: 02/16/22 15:51> Status: Acute <Tamie J. Stimac, PA-C - Last Filed: 02/16/22 15:51> Assessment and Plan: Pressures reviewed and were slightly elevated above target on presentation, likely related to anxiety surrounding hospitalization. Blood pressures did improve. Continue metoprolol and triamterene-hydrochlorothiazide Instructed to monitor blood pressures at home and record for review by PCP <Tamiesofia Kauffman, PA-C - Last Filed: 02/16/22 15:51> (5) Asthma: Code(s): J45.909 - Unspecified asthma, uncomplicated <Tamie J. Stimac, PA-C - Last Filed: 02/16/22 15:51> Status: Acute <Tamie J. Stimac, PA-C - Last Filed: 02/16/22 15:51> Assessment and Plan: No acute issues Continue inhalers <Tamie J. Leiaac, PA-C - Last Filed: 02/16/22 15:51> (6) Tobacco dependence: Code(s): F17.200 - Nicotine dependence, unspecified, uncomplicated <Tamie J. Leiaac, PA-C - Last Filed: 02/16/22 15:51> Status: Acute <Tamie J. Stimac, PA-C - Last Filed: 02/16/22 15:51> Assessment and Plan: Patient smokes a half a pack per day She was educated on smoking cessation <Tamie J. Daly, PA-C - Last Filed: 02/16/22 15:51> (7) Anxiety: Code(s): F41.9 - Anxiety disorder, unspecified <Tamie J. Stimac, PA-C - Last Filed: 02/16/22 15:51> Status: Acute <Tamie J. Stimac, PA-C - Last Filed: 02/16/22 15:51> Assessment and Plan: No acute issues Continue fluoxetine <Tamie J. Leiaac, PA-C - Last Filed: 02/16/22 15:51> DS: Summary Hospital Course Hospital Course: Date of admission: 02/15/2022 Date of discharge: 02/16/2022 Latesha Avendaño is a 41-year-old female with a history of CAD, hypertension, hyperlipidemia, anxiety, depression who presented to the emergency department on 02/15/2022 with complaints of tingling in her fingertips with syncopal episode 1 week kiesha
[2022-02-16 17:55] LABS: Folic Acid 5.1 ng/mL (2.76->20)
== END 2022-02-16 16:26 | disposition home or self-care (01) ==
LOC: ANHED 21:34 → ANHIMU 22:55
PROVIDERS: Physician Assistant; Admitting Provider Internal Medicine; Emergency Provider Emergency Medicine; PCP Physician Assistant; Visit Provider Family Medicine
DX: R07.9 Chest pain, unspecified (principal); R55 Syncope and collapse; E66.01 Morbid (severe) obesity due to excess calories; E78.5 Hyperlipidemia, unspecified; F32.A Depression, unspecified; I10 Essential (primary) hypertension; F17.210 Nicotine dependence, cigarettes, uncomplicated; F41.9 Anxiety disorder, unspecified; I25.10 Atherosclerotic heart disease of native coronary artery without angina pectoris; I25.2 Old myocardial infarction; J45.909 Unspecified asthma, uncomplicated; K21.9 Gastro-esophageal reflux disease without esophagitis; R20.0 Anesthesia of skin; Z79.82 Long term (current) use of aspirin; Z68.43 Body mass index [BMI] 50.0-59.9, adult; Z95.5 Presence of coronary angioplasty implant and graft
CPT/HCPCS: 36415; 70450; 71046; 78452; 80048; 82607; 82746; 84484; 85025; 93005; 93017; 93880; 96372; 96374; 96375; 99285; A9270; A9502; C8929; G0378; G0379; J1650; J2785; Q9957

== ENCOUNTER 2023-02-06 15:35 | Emergency (ER) | payer OTHER, SELFPAY ==
--- NOTE | ~2023-02-06 | XR_ITS ---
EXAMINATION: XR chest 2V 02/06/2023 16:49 INDICATION: Chest pain, nausea and shortness of breath PROCEDURE: 2 view chest COMPARISON: 02/15/2022 FINDINGS: The lungs are clear. The cardiomediastinal silhouette is within normal limits. There are no pleural effusions. There is no pneumothorax suspected. IMPRESSION: 1: NO ACUTE CARDIOPULMONARY DISEASE. Reviewed, dictated and finalized at location L.
--- NOTE | 2023-02-06 15:40 | ECG_ITS ---
Measurements Intervals [place] Rate: 84 P: 55 DC: 150 QRS: 44 QRSD: 83 T: 47 QT: 380 QTc: 450 Interpretive Statements SINUS RHYTHM LOW QRS VOLTAGE IN PRECORDIAL LEADS MINIMAL Q WAVES- INFERIOR LEADS CONSIDER ANTERIOR INFARCT, AGE INDETERMINATE BASELINE ARTIFACT- I, II, AVR, AVL, AVF, V1, V3-V6 ABNORMAL ECG COMPARED TO ECG 02/15/2022 20:50:39 NO SIGNIFICANT CHANGES Electronically Signed On 02-06-2023 18:35:14 CDT by Ant Gonzalez D.O.
[2023-02-06 15:50] VITALS: BP 154/96; PULSE 16; RESP 16; TEMP 36.6; O2SAT 98
[2023-02-06 16:36] LABS: Basophils Absolute Auto 0.1 K/mm3 (0.0-0.1); Basophils Percent Auto 1.5 % (0.2-1.2); Eosinophils Absolute Auto 0.1 K/mm3 (0-0.3); Eosinophils Percent Auto 1.3 % (0-4.4); Hematocrit 42.8 % (37.0-47.0); Hemoglobin 14.8 g/dL (12.0-15.0); Immature Granulocyte Absolute 0.05 K/mm3 (0.00-0.031); Immature Granulocyte Percent A 0.6 % (0-0.5); Lymphocytes Absolute Auto 2.28 K/mm3 (0.9-3.2); Lymphocytes Percent Auto 27.7 % (18.3-44.2); Mean Corpuscular HGB Conc 34.6 g/dl (32-36); Mean Corpuscular Hemoglobin 31.1 pg (26-34); Mean Corpuscular Volume 89.9 fl (80-100); Mean Platelet Volume 11.3 fl (7.4-10.4); Monocytes Absolute Auto 0.6 K/mm3 (0.1-0.6); Monocytes Percent Auto 6.9 % (2.6-8.5); Neutrophils Absolute Auto 5.1 K/mm3 (1.3-6.7); Platelet Count Result 205 k/mm3 (150-375); Red Blood Count 4.76 M/mm3 (4.2-5.4); Red Cell Distribution Width 12.2 % (11.5-14.5); White Blood Count 8.2 K/mm3 (4.5-10.0)
[2023-02-06 16:46] LABS: Alanine Aminotransferase 56 U/L (6-35); Albumin Level 4.3 g/dL (3.5-5.1); Alkaline Phosphatase 50 U/L (38-126); Anion Gap 9 mmol/L (8-16); Aspartate Amino Transferase 60 U/L (14-36); Bilirubin,Total 0.4 mg/dL (0.2-1.3); Blood Urea Nitrogen 8 mg/dL (7-17); Calcium 9.3 mg/dL (8.4-10.2); Carbon Dioxide 30 mmol/L (22-30); Chloride 100 mmol/L (98-107); Estimated CRCL calculation 148 ml/min; Estimated Glomerular Filt Rate > 60; Glucose 125 mg/dL (65-110); Lipase 43 U/L (23-300); Potassium 3.8 mmol/L (3.4-5.0); Sodium 139 mmol/L (137-145)
[2023-02-06 16:53] LABS: Prothrombin Time 13.3 Seconds (11.1-14.7)
[2023-02-06 16:54] LABS: Partial Thromboplastin Time 26.4 SECONDS (22.3-36.8)
[2023-02-06 16:57] LABS: Troponin I < 0.012 ng/mL (0.000-0.034)
[2023-02-06 19:37] VITALS: BP 161/93; PULSE 74; PULSE 75; RESP 18; TEMP 36.6; O2SAT 99
[2023-02-06 19:39] VITALS: O2SAT 99
[2023-02-06 19:40] VITALS: O2SAT 100
[2023-02-06] MEDS: ASPIRIN 81 MG CHEWABLE TABLET 324 MG PO (19:56)
[2023-02-06 20:23] LABS: Troponin I < 0.012 ng/mL (0.000-0.034)
--- NOTE | 2023-02-06 20:41 | ED.CHESTPAIN ---
HPI - Chest Pain General Chief Complaint: Chest Pain Stated Complaint: Chest Pain Time Seen by Provider: 02/06/23 19:32 History of Present Illness HPI narrative: Patient is a 42-year-old female with a history of hypertension, hyperlipidemia, anxiety presenting with chest pain. Patient states that for the last several weeks she has had intermittent substernal chest pain. States that today it started while she was at work approximately 11 hours ago. Denies exertion when it started. States that it was associated with anxiety. States that she had a few Klonopin left from a prior prescription and she took 1 which seemed to help. States that she has been under significant stress for the last 6 to 8 months due to her father being sick and her best friend's mother being murdered. States that she has also been gaining weight lately due to unhealthy eating habits related to the stress. She denies fevers or chills, lightheadedness, numbness or weakness, vision changes, abdominal pain, leg swelling, diarrhea. States that she had 2 episodes of emesis about 12 hours ago. States that she has a headache right now but otherwise denies complaints. No current chest pain. Related Data Home Medications Medication Instructions Recorded Confirmed albuterol sulfate 90 mcg/actuation 1 inh inhalation QID PRN Wheezing 07/04/20 02/15/22 aerosol inhaler aspirin 81 mg tablet 81 mg PO DAILY 07/04/20 02/15/22 atorvastatin 40 mg tablet 40 mg PO DAILY 07/04/20 02/15/22 clonazepam 0.5 mg tablet 0.5 mg PO DAILY PRN Anxiety 07/04/20 02/15/22 fluoxetine 20 mg capsule 20 mg PO DAILY 07/04/20 02/15/22 metoprolol tartrate 25 mg tablet 25 mg PO BID 07/04/20 02/15/22 omeprazole 20 mg capsule,delayed 20 mg PO DAILY 07/04/20 02/15/22 release triamterene 75 1 tablet PO DAILY 07/04/20 02/15/22 mg-hydrochlorothiazide 50 mg tablet zolpidem 10 mg tablet 10 mg PO HS PRN Wheezing 07/04/20 02/15/22 Allergies Allergy/AdvReac Type Severity Reaction Status Date / Time No Known Allergies Allergy Verified 07/04/20 11:51 Review of Systems Review of Systems: All systems reviewed & are unremarkable except as noted in HPI and below PMFSH Past Medical History Medical History Anxiety Asthma delivery delivered Depression Ganglion cyst History of gastroesophageal reflux (GERD) Hypercholesteremia Hypertension Morbid obesity Latesha says she is preparing to get gastric bypass Myocardial infarct, old Surgical History Surgical History H/O section X2 History of coronary artery stent placement History of surgery on left wrist Cyst removed from left wrist History of tonsillectomy S/P LEEP (loop electrosurgical excision procedure) Family History Family History Father Unknown family medical history Mother Asthma Hypertension Heart disease Diabetes mellitus Social History Social History Smoking packs per day: 0.45 Smoking cigarettes per day: 9.0 Years smoked: 25 Smoking pack-years: 11.25 Smoking status: Current every day smoker Alcohol intake: current Substance use: current Substance use type: marijuana Living arrangements: with family Occupation/Education: occupation Gender identity (if verbalized by the patient): Female Sexual Orientation (if Verbalized by the Patient): Straight or Heterosexual Spiritual care concerns: No Exam Narrative: GENERAL: Well-appearing, well-nourished, and in no acute distress HEAD: Normocephalic, atraumatic. EYES: PERRLA and EOMI. ENT: Nares clear, no rhinorrhea or epistaxis. Mucous membranes moist. NECK: Supple. CHEST: Clear to auscultation. No respiratory distress. HEART: Regular rate and rhythm. No murmur heard ABDOMEN: Soft, nonten
[2023-02-06] MEDS: ACETAMINOPHEN 500 MG TABLET 1000 MG PO (20:52)
[2023-02-06 21:59] LABS: Troponin I < 0.012 ng/mL (0.000-0.034)
[2023-02-06 22:01] VITALS: BP 166/101; PULSE 87; RESP 20; TEMP 36.6; O2SAT 100
== END 2023-02-06 22:03 | disposition home or self-care (01) ==
PROVIDERS: Emergency Medicine; Emergency Provider Emergency Medicine
DX: R07.89 Other chest pain (principal); F41.9 Anxiety disorder, unspecified; I10 Essential (primary) hypertension; J45.909 Unspecified asthma, uncomplicated; E78.00 Pure hypercholesterolemia, unspecified; I25.2 Old myocardial infarction; K21.9 Gastro-esophageal reflux disease without esophagitis; E66.01 Morbid (severe) obesity due to excess calories; Z68.43 Body mass index [BMI] 50.0-59.9, adult; Z95.5 Presence of coronary angioplasty implant and graft; Z79.82 Long term (current) use of aspirin; F17.210 Nicotine dependence, cigarettes, uncomplicated
CPT/HCPCS: 36415; 71046; 80053; 83690; 84484; 85025; 85610; 85730; 93005; 99284; A9270

== ENCOUNTER 2023-11-08 07:35 | Outpatient (CLI) | payer OTHER, SELFPAY ==
--- NOTE | ~2023-11-08 | XR_ITS ---
EXAMINATION: XR chest 2V DATE: 11/08/2023 07:52 INDICATION: Dyspnea. TECHNIQUE: Frontal and lateral views of the chest were obtained. COMPARISON: Chest 2 views 02/06/2023 FINDINGS: There is no pneumonia, pleural effusion, or pneumothorax. The heart size is normal. IMPRESSION: 1. No acute cardiopulmonary disease. Reviewed, dictated and finalized at location A. ET INSTALLER
--- NOTE | ~2023-11-08 | US_ITS ---
US abdomen complete DATE: 11/08/2023 08:45 INDICATION: Abdominal pain TECHNIQUE: Real-time imaging and Doppler analysis of the abdomen COMPARISON: None FINDINGS: There is suboptimal ultrasound beam penetration of the liver. No hepatic space-occupying ma ss lesion is evident. Normal hepatopedal portal venous flow direction. No gallstones or gallbladder wall thickening or abnormal pericholecystic fluid collection. The common bile duct measures 0.44 mm, within normal range. Splenic size is within normal range. No renal mass lesion or hydronephrosis. The right kidney measures approximately 12.6 cm length, left 13.1 cm length. No hydronephrosis is noted. Normal diameter of the abdominal aorta. Inferior vena cava is unremarkable. IMPRESSION: Suboptimal penetration of the liver; no significant abnormality is detected Reviewed, dictated and finalized at Location A. Reviewed, dictated and finalized at location D. CAL ATTENDANT
== END 2023-11-08 07:36 | disposition home or self-care (01) ==
PROVIDERS: PCP Physician Assistant; Visit Provider Physician Assistant
DX: R10.9 Unspecified abdominal pain (principal); R06.09 Other forms of dyspnea
CPT/HCPCS: 71046; 76700

== ENCOUNTER 2025-06-22 14:18 | Emergency (ER) | payer SELFPAY ==
--- OUTSIDE RECORDS SUMMARY | 2010-01-06 05:30 | XMS_ITS | Continuity of Care Document ---
Author Organization [facility] Address [address] [place] [address] Phone Care Team Providers Care Inventory Worker Name Role Phone Villanueva OD, Ollie Unavailable Unavailable Procedures Procedure Date Eye Exam Established Pt Office/outpatient Visit, Est Office/outpatient Visit, Est Office/outpatient Visit, Est Office/outpatient Visit, Est Eye Exam Established Pt Office/outpatient Visit, New Advance Directives Directive Yes / No Effective Date File Name No Information Encounters Encounter Description Practice Location Reason(s) For Visit Diagnoses Date Provider Providers Copied on Encounter [facility], [address] [place] [address] [address], [place], [place], [id number], [place] tel:[phone] [facility] No Information 5-201 0 Villanueva OD Ollie. [address] , [address], [place], [place], [facility] [place]. tel:[phone] Office/outpat ient Visit, [facility] [place], [address], [place], [place], [id number], [place] tel:[phone] [facility] No Information - 0 Villanueva OD Ollie. [address] , [address], [place], [address], [place]. tel:[phone] Office/outpat ient Visit, [facility] [place], [address] [place] [address] [address], [place], [place], [id number], [place] tel:[phone] [facility] No Information Dec-3 1-200 9 Villanueva OD Ollie. [address] , [address], [place], [address], [place]. tel:[phone] Office/outpat ient Visit, [facility], [address], [place], [place], [id number], [place] tel:[phone] [facility] No Information Dec-2 4-200 9 Villanueva OD Ollie. [address] , [address], [place], [place], [facility] [place]. tel:[phone] Office/outpat ient Visit, [facility] [place], [address] [place] [address] [address], [place], [place], [id number], [place] tel:[phone] [facility] No Information Dec-2 2-200 9 Krishnasamy Emmett. [address], [place], [place], [facility] [place]. tel:[phone] [facility], [address] [place] [address] [address], [place], [place], [id number], [place] tel:[phone] [facility] No Information Nov-1 9-200 9 Villanueva OD Ollie. [address] , [address], [place], [place], [facility] [place]. tel:[phone] Office/outpat ient Visit, [facility], [address] [place] [address] [address], [place], [place], [id number], [place] tel:[phone] [facility] No Information Dec-1 5-200 8 Doisy Edward. [address] , [address], [place], [place], [facility] [place], [place]. tel:[phone] Family History Family Member Type Diagnosis Age At Onset No Information Payers Payer name Insurance type Covered alliance party ID Authoriza tion(s) [place] [id number] Social History Type Description Quantity Date Captured Comments Sex Female Smoking Status No Information Chief Complaint And Reason For Visit No Information Reason For Referral Reason For Referral No Information History Of Present Illness Encounter Date Complaint History Of Prese nt Illness No Information Functional Status Date Functional Assessmen t No Information Instructions Date Instruction Additional Infor mation No Information Assessments Type Assessment Date No Information Patient Care Teams Name Effective Dates (start - stop) Status Members No Information
[2025-06-22] VITALS (11 sets, daily range): BP systolic 127–153; BP diastolic 81–103; PULSE 90–109; RESP 16–23; TEMP 36.6–36.8; O2SAT 93–99
--- NOTE | ~2025-06-22 | XR_ITS ---
EXAMINATION: XR chest 2V 06/22/2025 15:12 INDICATION: Deep cough TECHNIQUE:Frontal and lateral images of the chest were obtained. COMPARISON: 11/08/2023 FINDINGS: Heart is not enlarged. No pneumothorax. No pleural effusion. No free air under the diaphragm. Small opacities in the lower lungs. IMPRESSION: 1: Small opacities in the mid and lower lungs which represents atelectasis/scarring or infiltrates. If symptoms persist or worsen, consider a short-term follow-up study or additional imaging for further assessment. Reviewed, dictated and finalized at location Q. IMPRESSION: 1: Small opacities in the mid and lower lungs which represents atelectasis/scar ring or infiltrates. If symptoms persist or worsen, consider a short-term follow-up study or additio nal imaging for further assessment.
--- NOTE | 2025-06-22 14:28 | ECG_ITS ---
Test Date: 2025-06-22 14:31:20 Measurements Intervals [place] Rate: 98 P: 61 NH: 154 QRS: 60 QRSD: 89 T: 59 QT: 356 QTc: 455 Interpretive Statements SINUS RHYTHM POSSIBLE RIGHT ATRIAL ENLARGEMENT [0.25mV P-WAVE] POSSIBLE LEFT ATRIAL ENLARGEMENT [-0.1mV P-WAVE IN V1/V2] No previous ECG available for comparison possible old inferior mi Electronically Signed On 06-22-2025 15:06:05 CDT by Harsha Abreu M.D.
[2025-06-22 14:38] LABS: Hematocrit 48.4 % (37.0-47.0); Hemoglobin 16.4 g/dL (12.0-15.0); Immature Granulocyte Percent A 0.7 % (0-0.5); Lymphocytes Absolute Auto 2.47 K/mm3 (0.9-3.2); Mean Corpuscular HGB Conc 33.9 g/dl (32-36); Mean Corpuscular Hemoglobin 29.9 pg (26-34); Mean Corpuscular Volume 88.2 fl (80-100); Nucleated Red Blood Cells Absolute Auto 0.000 K/mm3 (0.0-0.012); Nucleated Red Blood Cells Perc 0.0 % (0.0-0.2); Platelet Count Result 222 k/mm3 (150-375); Red Blood Count 5.49 M/mm3 (4.2-5.4); White Blood Count 9.5 K/mm3 (4.5-10.0)
[2025-06-22 14:49] LABS: INR 1.0; Partial Thromboplastin Time 22.8 Seconds (22.3-36.8); Prothrombin Time 12.8 Seconds (11.1-14.7)
[2025-06-22 14:51] LABS: Alanine Aminotransferase 38 U/L (6-35); Albumin Level 4.1 g/dL (3.5-5.1); Alkaline Phosphatase 98 U/L (38-126); Anion Gap 10 mmol/L (4-12); Aspartate Amino Transferase 36 U/L (14-36); Bilirubin,Total 0.7 mg/dL (0.2-1.3); Blood Urea Nitrogen 7 mg/dL (7-17); Calcium 8.8 mg/dL (8.4-10.2); Carbon Dioxide 25 mmol/L (22-30); Chloride 94 mmol/L (98-107); Estimated CRCL calculation 185 ml/min; Estimated Glomerular Filt Rate > 60; Lipase 50 U/L (23-300); Potassium 4.6 mmol/L (3.4-5.0); Sodium 129 mmol/L (137-145); Total Protein 8.1 g/dL (6.3-8.2)
[2025-06-22 14:52] LABS: Glucose 544 mg/dL (65-110)
--- OUTSIDE RECORDS SUMMARY | 2025-06-22 14:59 | XMS_ITS | Clinical Summary ---
Author Organization [facility] Address [address] [place] [address] Care Team Providers Care [employer] Mainframe Systems Programmer Name Role Phone Deepa Medrano Primary Care Provider [phone] Allergies Active Allergy Reactions Criticality Noted Date Comments Aspirin Agitation,Anxiety,Dizziness Low 09/30/19 21 Medications zolpidem (AMBIEN) 10 mg tablet Take 1 tablet (10 mg total) by mouth nightly at bedtime 0 Active triamterene-hydr oCHLOROthiazide (MAXZIDE,DYAZIDE ) 75-50 mg per tablet TK 1 T PO QD 0 Active butalbital-aceta minophen-caffein e (ESGIC) 50-325-40 mg per tablet 0 Active budesonide-formo teroL (SYMBICORT) 160-4.5 mcg/actuation inhaler Inhale 2 puffs 2 (two) times a day Rinse mouth with water after use. Do not swallow. Active albuterol HFA (PROVENTIL HFA,VENTOLIN HFA,PROAIR HFA) 90 mcg/actuation inhaler Inhale 2 puffs every 6 (six) hours as needed for wheezing Active topiramate (TOPAMAX) 50 mg tabletIndication s:Chronic migraine without aura without status migrainosus, not intractable Take half tablet (25 mg) po twice a day for one week, then one tablet po twice a day 60 tablet 3 2 Active Additional Information Patient not taking.Reported on 04/18/2023 SUMAtriptan (IMITREX) 100 mg tabletIndication s:Migraine Take one tabet po q2h prn as soon as feel headache is coming. No more than 2 tablets in 24 hours. 9 tablet 3 2 Active cyclobenzaprine (FLEXERIL) 10 mg tablet Take 1 tablet (10 mg total) by mouth nightly as needed 3 Active TRUEplus Pen Needle 31 gauge x 5/16 needle USE DAILY WITH VICTOZA 3 Active aspirin 81 mg enteric coated tabletIndication s:Coronary artery disease involving [place] coronary artery of [place] heart without angina pectoris Take 1 tablet (81 mg total) by mouth daily 90 tablet 3 4 Active metoprolol tartrate (LOPRESSOR) 25 mg immediate release tabletIndication s:Coronary artery disease involving [place] coronary artery of [place] heart without angina pectoris Take 1 tablet (25 mg total) by mouth 2 (two) times a day 180 tablet 3 4 Active atorvastatin (LIPITOR) 80 mg tabletIndication s:Coronary artery disease involving [place] coronary artery of [place] heart without angina pectoris Take 1 tablet (80 mg total) by mouth daily 90 tablet [address] (PROTONIX) 20 mg EC tablet Take 2 tablets (40 mg total) by mouth daily 4 Active Jardiance 25 mg tablet TAKE 1 TABLET BY MOUTH EVERY DAY IN THE MORNING FOR DIABETES 4 Active Trulicity 3 mg/0.5 mL pen injector INJECT 3 MG UNDER THE SKIN EVERY WEEK DIRECTED FOR DIABETES 4 Active metFORMIN (GLUCOPHAGE) 500 mg tablet TAKE 1 TABLET BY MOUTH EVERY DAY FOR 1 WEEK THEN TAKE 1 TABLET BY MOUTH TWICE DAILY FOR 1 WEEK THEN TAKE 2 TABLETS BY MOUTH TWICE DAILY FOR 30 DAYS 4 Active nitroglycerin (NITROSTAT) 0.[address] 1 tablet (0.4 mg total) under the tongue every 5 (five) minutes as needed for chest pain May repeat dose q 5 min, up to 3 doses total 30 tablet 2 4 Active clonazePAM (KlonoPIN) 0.5 mg tablet Take 1 tablet (0.5 mg total) by mouth daily as needed 5 Active benzonatate (TESSALON) 200 mg capsule Take 1 capsule (200 mg total) by mouth 3 (three) times a day as needed for cough keep tessalon out of reach of children, especially children under the age of 10, due to possible serious risk such as if ingested by children under the age of 10. 30 capsule 5 Active Active Problems Problem Noted Date Diagnosed Date Angina pectoris, unspecified 06/05/2024 Morbid (severe) obesity due to excess calories 0 10/23/2023 Body mass index (BMI) 50.0-59.9, adult 4 Chronic migraine without aur a without status migrainosus, not intractable 11/25/2021 Coronary artery disease invo lving [place] coronary artery of [place] heart without angina pectoris 10/25/2017 History of coronary artery stent placement 10/25 Morbid obesity with BMI of 40.0-44.9, adult 02/09/2017 Surgical History Surgery Date Site/Laterality Comments CARDIAC CATHETERIZATION 10/04/2017 X 1 Stent WRIST SURGERY Left Ganglion TONSILLECTOMY SECTION x 2 CARDIAC STENT PLACEMENT Medical History Medical History Date Comments Heart murmur Heart attack (HCC) Sinusitis Acid indigestion Pneumonia Heart valve stenosis PONV (postoperative nausea and vomiting) Hypertension Coronary artery disease Stent x 1 GERD (gastroesophageal reflux disease) Abnormal Pap smear of cervix Morbid obesity (HCC) Hyperlipidemia Anemia Anxiety Asthma Depression Family History Medical History Relation Name Comments No Known Problems Father Heart attack Maternal Grandfather Heart attack Maternal Grandmother Diabetes Mother Heart attack Mother Hyperlipidemia Mother Hypertension Mother Stroke Mother Heart attack Mother's Sister Relation Name Status Comments Father Maternal Grandfather Maternal Grandmother Mother Alive Mother's Sister Social History Tobacco Use Types Packs/Day Years Used Date Smoking Tobacco: Every Day Cigarettes 0.5 20 Smokeless Tobacco: Never Alcohol Use Standard Drinks/Week Comments Yes 0 (1 standard drink = 0.6 oz pur e alcohol) rare AUDIT-C Answer Date Recorded Q1: How often do you have a drink containing alc ohol? Monthly or less 02/26/2022 Q2: How many drinks containi ng alcohol do you have on a typical day when you are drinking? 1 or 2 02/26/2022 Q3: How often do you have si x or more drinks on one occasion? 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 Gender Identity Not on file Sexual Orientation Straight 09/30/2020 8: 30 AM CASH MANAGEMENT SPECIALIST Obstetrics History Last Filed Vital Signs Vital Sign Reading Time Taken Comments Blood Pressure 109/75 12/27/2024 6:31 PM CDT Pulse 83 12/27/2024 6:31 PM CDT Temperature 37.1 C (98.7 F) 12/27/2024 6:31 PM CDT Respiratory Rate 20 12/27/2024 6:31 PM CDT Oxygen Saturation 98% 12/27/2024 6:31 PM CDT Inhaled Oxygen Concentration - - Weight 133.8 kg (295 lb) 12/27/2024 6:31 PM CDT Height 162.6 cm (5' 4) 06/05/2024 11:21 AM CDT Body Mass Index 50.64 06/05/2024 11:21 AM CDT Plan of Treatment Health Maintenance Due Date Last Done Comments Breast Cancer Screening-Mammogram 1979 Cervical Cancer Screening 1979 Colon Cancer Screening-Colonoscopy 1979 Depression Screening 1979 Hepatitis C Screening 1979 DTaP/Tdap/Td Vaccine (1 - Tdap) 1990 Hepatitis B Screening 1997 Regular Well Visit/Exam 18-64 1997 Pneumococcal vaccine <65 (1 of 2 - PCV) 1998 HPV Vaccines (1 - 3-dose SCDM series) 2006 Influenza Vaccine (#1) 2025 Insurance [facility] Care Teams [employer] Programmer Relationship Specialty Start Date End Date Deepa Medrano PA [address] [place] [id number] PCP - General Physician Podiatry Professor 09/24/23
[2025-06-22 15:00] LABS: Troponin I < 0.012 ng/mL (0.000-0.034)
[2025-06-22] MEDS: SODIUM CHLORIDE 0.9% IV 1,000 ML 999 ML IV CONT (15:14)
[2025-06-22] MEDS: INSULIN HUMAN REGULAR (*BKC) 100 UNITS/ML 10 UNITS IV PUSH (15:14)
--- OUTSIDE RECORDS SUMMARY | 2025-06-22 15:45 | XMS_ITS | Clinical Summary ---
Author Organization [facility] Address [address] [place] [address] Care Team Providers Care Research Development Manager Name Role Phone Deepa Medrano Primary Care Provider Allergies Active Allergy Reactions Criticality Noted Date [...] enteric coated tabletIndication s:Coronary artery disease involving [place] coronary artery of [place] heart without angina pectoris Take 1 tablet (81 mg total) by mouth daily 90 tablet 3 4 Active metoprolol tartrate (LOPRESSOR) 25 mg immediate release tabletIndication s:Coronary artery disease involving [place] coronary artery of [place] heart without angina pectoris Take 1 tablet (25 mg total) by mouth 2 (two) times a day 180 tablet 3 4 Active atorvastatin (LIPITOR) 80 mg tabletIndication s:Coronary artery disease involving [place] coronary artery of [place] heart without angina pectoris Take 1 tablet [...] intractable 11/25/2021 Coronary artery disease invo lving [place] coronary artery of [place] heart without angina pectoris 10/25/2017 History of [...] on file 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 Care Teams Research Development Manager Relationship Specialty Start Date End Date Deepa Medrano PA [address] [place] [phone] PCP - General Physician Corrections Sergeant 09/24/23
--- NOTE | 2025-06-22 16:45 | PC.NURSE ---
EDP aware of pt bedside blood glucose results
--- NOTE | 2025-06-22 17:23 | ECG_ITS ---
Test Date: 2025-06-22 17:29:51 Measurements Intervals [place] Rate: 90 P: 58 NM: 149 QRS: 62 QRSD: 90 T: 33 QT: 368 QTc: 451 Interpretive Statements SINUS RHYTHM LOW QRS VOLTAGE IN PRECORDIAL LEADS [QRS DEFLECTION < 1.0 mV IN CHEST LEADS] POSSIBLE INFERIOR MYOCARDIAL INFARCTION , PROBABLY OLD [30 ms Q WAVE IN II/aVF] Compared to ECG 06/22/2025 14:31:20 Low QRS voltage now present Myocardial infarct finding now present Electronically Signed On 06-22-2025 20:27:19 CDT by Harsha Abreu M.D.
--- NOTE | 2025-06-22 17:34 | ED_ITS ---
HPI - Chest Pain General Chief Complaint: Chest Pain Stated Complaint: high blood sugar, cp Time Seen by Provider: 06/22/25 14:29 History of Present Illness HPI narrative: Patient is a 44-year-old female who presents ER with elevated blood sugars. Ongoing for 1 month or more since her diabetic medications were changed. She takes metformin, Jardiance, and Lantus. She has not taken any of her medications today. She reports that her blood sugars have been running high for weeks but instead of following up with her doctor she ended up going on vacation for a week. Blood sugars still reading high today so opted to come in for evaluation. Patient also has been developing multiple abscesses across her body including her armpits, abdominal wall, and back. Most have been draining but she is having issues currently with her right axillary region. No urinary symptoms. No GI issues. Describe some vague chest tightness over last few days. Has history of DE in the past. Related Data Home Medications ?Medication ?Instructions ?Recorded ?Confirmed ?Last Taken ?Type albuterol sulfate 90 mcg/actuation 1 inh inhalation QI D PRN Wheezing 07/04/20 02/15/22 Unknown History aerosol inhaler aspirin 81 mg tablet 81 mg PO DAILY 07/04/2001/23 Unknown History atorvastatin 40 mg tablet 40 mg PO DAILY 07/04/2001/23 Unknown History clonazepam 0.5 mg tablet 0.5 mg PO DAILY PRN Anxiety 07/04/20 02/15/22 Unknown History fluoxetine 20 mg capsule 20 mg PO DAILY 07/04/2001/23 Unknown History metoprolol tartrate 25 mg tablet 25 mg PO BID 07/04/20 02/15/22 Unknown History omeprazole 20 mg capsule,delayed 20 mg PO DAILY 02/15/22 Unknown History release triamterene 75 1 tablet PO DAILY 07/04/20 0 02/15/22 Unknown History mg-hydrochlorothiazide 50 mg tablet zolpidem 10 mg tablet 10 mg PO HS PRN Wheezing 08/1302/15/22 Unknown History Allergies Allergy/AdvReac Type Severity Reaction Status Date / Time aspirin AdvReac Mild Itching Verified 06/22/25 14:25 Review of Systems 2 Review of Systems: All systems reviewed & are unremarkable except as noted in HPI and below Constitutional: Constitutional: Reports no additional constitutional complaints Cardiovascular: Cardiovascular: Reports no additional cardiovascular complaints Respiratory: Respiratory: Reports no additional respiratory complaints Gastrointestinal: Gastrointestinal: Reports no additional gastrointestinal complaints Genitourinary: Genitourinary: Reports no additional female genitourinary complaints Integumentary/Breasts: Skin/Breast: Reports system reviewed and no additional complaints, except as docu Neurologic: Reports system reviewed and no additional complaints, except as documented PMFSH Past Medical History Medical History Anxiety Asthma delivery delivered Depression Ganglion cyst History of gastroesophageal reflux (GERD) Hypercholesteremia Hypertension Morbid obesity Latesha says she is preparing to get gastric bypass Myocardial infarct, old Surgical History Surgical History H/O section X2 History of coronary artery stent placement History of surgery on left wrist Cyst removed from left wrist History of tonsillectomy S/P LEEP (loop electrosurgical excision procedure) Family History Family History Father Unknown family medical history Mother Asthma Hypertension Heart disease Diabetes mellitus Social History Social History Smoking packs per day: 0.45 Smoking cigarettes per day: 9.0 Years smoked: 25 Smoking pack-years: 11.25 Smoking status: Current every day smoker Alcohol intake: current Substance use: current Substance use type: marijuana Living arrangements: with family Occupation/Education: occupation Gender identity (if verbalized by the patient): Female Sexual Orientation (if Verbalized by the Patient): Straight or Heterosexual Spiritual care concerns: No Exam 2 Narrative: GENERAL: Well-appearing, morbidly obese, and in no acute distress. HEAD: Normocephalic, atraumatic. ENT: Mucous membranes moist. CHEST: Clear to auscultation. No respiratory distress. HEART: Regular rate and rhythm. Normal peripheral pulses. ABDOMEN: Soft, nontender, nondistended. EXTREMITIES: Normal range of motion. No edema. SKIN: Warm, dry, no rash. Right axillary abscess in need of drainage. Healing abscess right abdominal wall. NEURO: Alert and oriented x3. PSYCH: Normal mood and affect. Course Course Emergency Course: Patient resting comfortably. Discussed treatment plan and patient verbalized understanding. Troponin negative x2. Patient urged to be compliant with her home medication. I contacted her PCP's office and they would like to see her in close follow-up. Patient verbalized understanding of this. Vital Signs Vital signs: Vital Signs Temperature 97.9 F 06/22/25 14:25 Pulse Rate 109 H 06/22/25 14:25 Respiratory Rate 16 06/22/25 14:25 Blood Pressure 153/103 H 06/22/25 14:25 Pulse Oximetry 99 06/22/25 14:25 Oxygen Delivery Room Air 06/22/25 14:25 Temperature 97.9 F 06/22/25 14:25 Pulse Rate 90 06/22/25 18:19 Respiratory Rate 20 06/22/25 18:19 Blood Pressure 144/99 H 06/22/25 18:19 Pulse Oximetry 97 06/22/25 18:19 Oxygen Delivery Room Air 06/22/25 14:38 Procedures Abscess I/D axilla: Date of Incision: 06/22/25 Time of Incision: 17:30 Local Anesthetic: lidocaine 1% and with epi Amount of anesthesia used (mL): 4 Technique: incised with #11 blade Packing used?: plain I&D Results: Pus MDM - Chest Pain Lab Data 06/22/25 14:32 06/22/25 14:32 Labs: Lab Results 06/22/25 06/22/25 06/22/25 Range/Units 14:26 14:32 16:42 WBC 9.5 (4.5-10.0) K/mm3 RBC 5.49 H (4.2-5.4) M/mm3 Hgb 16.4 H (12.0-15.0) g/dL Hct 48.4 H (37.0-47.0) % MCV 88.2 (80-100) fl MCH 29.9 (26-34) pg MCHC 33.9 (32-36) g/dl RDW 12.8 (11.5-14.5) % Plt Count 222 (150-375) k/mm3 MPV 11.8 H (7.4-10.4) fl Immature Gran % (Auto) 0.7 H (0-0.5) % Neut % (Auto) 64.5 (45.5-73.1) % Lymph % (Auto) 26.1 (18.3-44.2) % [place] % (Auto) 6.2 (2.6-8.5) % Eos % (Auto) 1.2 (0-4.4) % Baso % (Auto) 1.3 H (0.2-1.2) % Lymph # (Auto) 2.47 (0.9-3.2) K/mm3 [place] # (Auto) 0.6 (0.1-0.6) K/mm3 Eos # (Auto) 0.1 (0-0.3) K/mm3 Baso # (Auto) 0.1 (0.0-0.1) K/mm3 Abs Immat Gran (auto) 0.07 H (0.00-0.031) K/mm3 Absolute Neuts (auto) 6.1 (1.3-6.7) K/mm3 Absolute Nucleated RBC 0.000 (0.0-0.012) K/mm3 Nucleated RBC % 0.0 (0.0-0.2) % PT 12.8 (11.1-14.7) Seconds INR 1.0 APTT 22.8 (22.3-36.8) Seconds Sodium 129 L (137-145) mmol/L Potassium 4.6 (3.4-5.0) mmol/L Chloride 94 L (98-107) mmol/L Carbon Dioxide 25 (22-30) mmol/L Anion Gap 10 (4-12) mmol/L BUN 7 (7-17) mg/dL Creatinine 0.43 L (0.7-1.0) mg/dL Estim Creat Clear Calc 185 ml/min Estimated GFR > 60 (59 - ) Glucose 544 H* (65-110) mg/dL POC Capillary Glucose > 500 H* 421 H (65-105) mg/dl Calcium 8.8 (8.4-10.2) mg/dL Total Bilirubin 0.7 (0.2-1.3) mg/dL AST 36 (14-36) U/L ALT 38 H (6-35) U/L Alkaline Phosphatase 98 (38-126) U/L Troponin I < 0.012 (0.000-0.034) ng/mL Total Protein 8.1 (6.3-8.2) g/dL Albumin 4.1 (3.5-5.1) g/dL Lipase 50 (23-300) U/L 06/22/25 Range/Units 17:56 WBC (4.5-10.0) K/mm3 RBC (4.2-5.4) M/mm3 Hgb (12.0-15.0) g/dL Hct (37.0-47.0) % MCV (80-100) fl MCH (26-34) pg MCHC (32-36) g/dl RDW (11.5-14.5) % Plt Count (150-375) k/mm3 MPV (7.4-10.4) fl Immature Gran % (Auto) (0-0.5) % Neut % (Auto) (45.5-73.1) % Lymph % (Auto) (18.3-44.2) % [place] % (Auto) (2.6-8.5) % Eos % (Auto) (0-4.4) % Baso % (Auto) (0.2-1.2) % Lymph # (Auto) (0.9-3.2) K/mm3 [place] # (Auto) (0.1-0.6) K/mm3 Eos # (Auto) (0-0.3) K/mm3 Baso # (Auto) (0.0-0.1) K/mm3 Abs Immat Gran (auto) (0.00-0.031) K/mm3 Absolute Neuts (auto) (1.3-6.7) K/mm3 Absolute Nucleated RBC (0.0-0.012) K/mm3 Nucleated RBC % (0.0-0.2) % PT (11.1-14.7) Seconds INR APTT (22.3-36.8) Seconds Sodium (137-145) mmol/L Potassium (3.4-5.0) mmol/L Chloride (98-107) mmol/L Carbon Dioxide (22-30) mmol/L Anion Gap (4-12) mmol/L BUN (7-17) mg/dL Creatinine (0.7-1.0) mg/dL Estim Creat Clear Calc ml/min Estimated GFR (59 - ) Glucose (65-110) mg/dL POC Capillary Glucose (65-105) mg/dl Calcium (8.4-10.2) mg/dL Total Bilirubin (0.2-1.3) mg/dL AST (14-36) U/L ALT (6-35) U/L Alkaline Phosphatase (38-126) U/L Troponin I < 0.012 (0.000-0.034) ng/mL Total Protein (6.3-8.2) g/dL Albumin (3.5-5.1) g/dL Lipase (23-300) U/L Imaging Data Radiologist's impression: ITS Impressions Chest X-Ray 06/22/25 15:32 IMPRESSION: 1: Small opacities in the mid and lower lungs which represents atelectasis/scarring or infiltrates. If symptoms persist or worsen, consider a short-term follow-up study or additional imaging for further assessment. ECG Data EKG #1: ECG completion date: 06/22/25 ECG completion time: 17:29 EKG Interpretation: normal rate (90), sinus rhythm, no ST changes, normal QRS and NL axis Discharge Plan Discharge Clinical Impression: Chronic hyperglycemia, Abscess of axilla Patient Disposition: Home Condition: Stable Instructions: Abscess (ED), Diabetic Hyperglycemia (ED) Additional Instructions: Return the ER if you have fever over 100.4? F, you cannot keep down food or water, you lose consciousness, or you have additional concerns. Patient Language: Serbian Prescriptions: New sulfamethoxazole-trimethoprim [Bactrim DS] 800-160 mg tablet 1 tablet PO Q12H Qty: 14 0RF fluconazole 150 mg tablet 150 mg PO ONCE Qty: 1 0RF No Action atorvastatin 40 mg Tablet 40 mg PO DAILY clonazepam 0.5 mg Tablet 0.5 mg PO DAILY PRN (Reason: Anxiety) metoprolol tartrate 25 mg Tablet 25 mg PO BID omeprazole 20 mg Capsule,Delayed Release(Dr/Ec) 20 mg PO DAILY aspirin 81 mg Tablet 81 mg PO DAILY triamterene-hydrochlorothiazid 75-50 mg Tablet 1 tablet PO DAILY zolpidem 10 mg Tablet 10 mg PO HS PRN (Reason: Wheezing) albuterol sulfate 90 mcg/actuation Hfa Aerosol Inhaler 1 inh INHALATION QID PRN (Reason: Wheezing) fluoxetine 20 mg Capsule 20 mg PO DAILY fluticasone propionate [Allergy Relief (fluticasone)] 50 mcg/actuation spray,suspension 1 spray NASAL BID Qty: 16 0RF Rx Instructions: administer into each nostril loratadine [Claritin] 10 mg tablet 10 mg PO DAILY 30 Days Qty: 30 0RF Follow-up/Referrals: Marcela,TED Arenas [Primary Care Provider, Unknown] - 1 Week
[2025-06-22 18:28] LABS: Troponin I < 0.012 ng/mL (0.000-0.034)
== END 2025-06-22 19:18 | disposition home or self-care (01) ==
PROVIDERS: Emergency Provider Emergency Medicine; PCP Physician Assistant
DX: E11.65 Type 2 diabetes mellitus with hyperglycemia (principal); L02.411 Cutaneous abscess of right axilla; I25.2 Old myocardial infarction; I10 Essential (primary) hypertension; E78.00 Pure hypercholesterolemia, unspecified; J45.909 Unspecified asthma, uncomplicated; K21.9 Gastro-esophageal reflux disease without esophagitis; F41.9 Anxiety disorder, unspecified; F17.210 Nicotine dependence, cigarettes, uncomplicated; Z95.5 Presence of coronary angioplasty implant and graft; Z79.84 Long term (current) use of oral hypoglycemic drugs; Z79.899 Other long term (current) drug therapy; Z79.82 Long term (current) use of aspirin; Z79.4 Long term (current) use of insulin; R94.31 Abnormal electrocardiogram [ECG] [EKG]
CPT/HCPCS: 10060; 36415; 71046; 80053; 82948; 83690; 84484; 85025; 85610; 85730; 93005; 96361; 96374; 99284; J1815; J7030